=== PATIENT | male | born 1970 | race Hispanic/Latino ===

== ENCOUNTER 2023-03-12 11:35 | Emergency (ER) | payer OTHER ==
[~2023-03-12] VITALS: Ht 170.2 cm; Wt 90.7 kg
[2023-03-12 11:38] VITALS: BP 130/99; PULSE 84; RESP 18
[2023-03-12] MEDS ORDERED: ACETAMINOPHEN 500 MG TABLET PO ONE (12:00)
[2023-03-12 12:36] LABS: RAPID GROUP A STREP negative (NEGATIVE)
[2023-03-12 12:46] LABS: INFLUENZA TYPE A Negative For Type A (NEGATIVE); INFLUENZA TYPE B Negative For Type B (NEGATIVE)
[2023-03-12 12:53] LABS: COVID19 (SARS ANTIGEN RAPID) POSITIVE FOR SARS AG (NEGATIVE)
[2023-03-12] MEDS ORDERED: AMOX1TAB16 PO (13:09)
[2023-03-12] MEDS ORDERED: BENZ-39 PO (13:09)
== END 2023-03-12 13:25 | disposition home or self-care (01) ==
LOC: EDH 11:35
DX: U07.1 COVID-19 (principal); R50.9 Fever, unspecified
CPT/HCPCS: 87426; 87804; 87880

== ENCOUNTER 2024-04-01 10:23 | Emergency (ER) | payer OTHER ==
[~2024-04-01] VITALS: Ht 170.2 cm; Wt 93.0 kg
[~2024-04-01 10:23] MED LIST: AMOX1TAB16 PO; BENZ-39 PO
--- NOTE | 2024-04-01 14:01 | HMCIMG ---
US VENOUS DOPPLER UNILATERAL REASON: rt calf pain COMPARISON: None Technique: Right venous doppler ultrasound was performed with spectral analysis and color flow imaging technique. FINDINGS: There is a normal appearance of the common femoral, deep femoral, the profunda femoris and popliteal veins. Proximal calf veins appear normal as well. There is normal response to compression and augmentation. There is no evidence of deep venous thrombosis. IMPRESSION: Normal right lower extremity venous Doppler ultrasound.
--- NOTE | 2024-04-01 14:09 | ERN ---
ED Note History of Present Illness Stated Complaint: SENT BY DOCTOR Chief Complaint: Lower Extremity Pain/Injury Time Seen by MD: 10:30 Dictation: 53-year-old male who comes to the ED. for a work comp case. 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 He said he has suddenly started to try to run quickly during work. He had some pain on the medial side of his left lower calf. No swelling no redness no pain in the popliteal region Unasyn No chest pain or shortness of breath no falls trips traumas Allergies: Coded Allergies: No Allergy Information Available (Unverified Allergy, Unknown, 03/12/23) Home Meds Active Scripts Benzonatate (Tessalon Perles) 100 Mg Cap, 100 MG PO TID for cough, #30 CAP 0 Refills Prov:DEAN VINSON [employer] PROFESSOR 03/12/23 Amoxicillin/Potassium Clav (Amox Tr-K Clv 875-125 mg Tab) 875 Mg-125 Mg Tablet, 1 EACH PO BID for 10 Days, #20 TAB 0 Refills Prov:DEAN VINSON [employer] PROFESSOR 03/12/23 Past Medical History Past Medical History: High Cholesterol, Hypertension Surgical History: None Review of System Dictation Constitutional: Negative for fever,chills, and weight loss Eyes: Negative for injury, pain,redness, and discharge ENT: Negative for injury,pain or swelling Cardiovascular: Negative for chest pain, palpitations, and edema Respiratory: Negative for shortness of breath, cough, and wheezing, Abdomen/GI: Negative for abdominal pain, nausea, vomiting, diarrhea, and constipation Back: Negative for injury and pain : Negative for injury, bleeding and discharge MS/Extremity: Negative for injury and deformity Skin: Negative for rash, and discoloration Neuro: Negative for headache, weakness, numbness, tingling, and seizure Psych: Negative for suicide ideation, homicidal ideation, and hallucinations Initial Vital Sign VS Vital Signs Date Time Temp Pulse Resp B/P (MAP) Pulse Ox O2 Delivery O2 Flow Rate FiO2 04/01/24 10:35 98.6 74 20 159/100 99 Room Air 0 Physical Exam Dictation General: awake, alert, NAD Head/Face: Normocephalic, atraumatic Eyes: PERRL, EOMI, vision at baseline ENT: oral cavity clear, TMs clear, no signs of infection Neck: Trachea midline, supple, no nuchal rigidity Cardiovascular: RRR, normal S1/S2, No MRGs, no JVD Respiratory: CTAB, no respiratory distress, No rales or wheezes Abdomen: Soft, non-tender, non-distended, normal bowel sounds, no guarding or rebound. Skin: Warm, dry, normal turgor, no rash MS/Extremity: Pulses equal, no cyanosis, neurovascular intact, FROM Neuro: COAx4, GCS 15, strength 5/5, CN 2-12 intact, normal cerebellar exam, normal gait, Psych: Normal behavior, mood, and affect normal Does have some pain at the medial side of his left lower calf. There is no swelling redness erythema no pain behind the calf. Or behind the popliteal region Results (Laboratory/Radiology) Laboratory/Radiology Laboratory Tests Test 04/01/24 12:34 D-Dimer Quantitative (PE/DVT) 105 ng/mL (0-500) ED Course ED Course Orders Procedure Category Date Status Time D-Dimer LAB 04/01/24 Complete 11:57 Us Venous Doppler US 04/01/24 Resulted Unilateral 11:57 Vital Signs Date Time Temp Pulse Resp B/P (MAP) Pulse Ox O2 Delivery O2 Flow Rate FiO2 04/01/24 10:35 98.6 74 20 159/100 99 Room Air 0 Medical Decision Making MDM MDM: Differential diagnosis: Could be DVT. Could be gastric or soleus sprain strain Rationale: Tests considered and ordered secondary to shared decision making include: Previous outside records reviewed: Old ER visits. Risk of complication and/or morbidity or mortality of patient management: None Medications-Per medication reconciliation Need for hospitalization: Patient does not meet criteria for hospitalization. Need for emergency major/minor surgery: No There are no social concerns with this patient. Prescription drug management Prescriptions will include symptomatic care Patient's prior external medical records from other ER visits were reviewed by me as indicated. Prior testing and results from previous visits were reviewed. Prior tests were taken into account with medical decision making and resource utilization, independent historian/historians were used to obtain complete medical history. I independently interpreted the test that were performed, results were reviewed by me and considered findings on radiology if ordered. Medical management and examination interpretation discussions were had by me with other qualified healthcare professionals as indicated for the patient's care. I spoke to the patient I said and given that is sometimes a D-dimer comes back before ultrasound. We will or both. D-dimer was negative. I told him that he does not have a DVT. He said he wants ultrasound congenital or by PCP as said we can do the ultrasound that is fine. Said wears the orders said it was an older soon as I had seen him. He said he will wait. Ultrasound comes back as negative. He is stable for outpatient management cause he wants her records for the work and work DX & DISP Disposition: Discharge (ns stable for outpatient management) Departure Impression: Primary Impression: Sprain and strain Condition: Stable Referrals: ZARINA LEBLANC (PCP) JESS VAUGHAN MD Apr 01, 2024 14:08
[2024-04-01 14:33] VITALS: BP 164/93; PULSE 72; RESP 17; TEMP 98.1; O2SAT 96
== END 2024-04-01 14:36 | disposition home or self-care (01) ==
LOC: EDH 10:23
DX: S86.911A Strain of unspecified muscle(s) and tendon(s) at lower leg level, right leg, initial encounter (principal); S93.691A Other sprain of right foot, initial encounter; M79.661 Pain in right lower leg; I10 Essential (primary) hypertension; E78.00 Pure hypercholesterolemia, unspecified; X50.1XXA Overexertion from prolonged static or awkward postures, initial encounter; Y93.02 Activity, running; Y92.128 Other place in nursing home as the place of occurrence of the external cause; Y99.8 Other external cause status
CPT/HCPCS: 36415; 85378; 93971; 99284